=== PATIENT | female | born 1955 | race Caucasian/White ===

== ENCOUNTER → 2025-01-30 12:38 | Outpatient (CLI) | payer MEDICARE, SELFPAY ==
--- NOTE | 2025-01-30 12:57 | EKG_ITS ---
[facility] [address] [id number] [address] [place] [address] Test Date: 2025-01-30 Pat Name: Alena Hunt Department: Room: Gender: Female [employer]: : 1955 Requested By: Order Number: [id number] Reading MD: Mark Thompson Measurements Intervals [place] Rate: 73 P: 47 W[place]: 160 QRS: 80 QRSD: 80 T: 59 QT: 382 QTc: 420 Interpretive Statements Normal sinus rhythm with sinus arrhythmia Electronically Signed On 01-30-2025 17:06:42 PDT by Mark Thompson
== END ==
PROVIDERS: PCP Internal Medicine Geriatric Medicine; Referring Provider Internal Medicine Geriatric Medicine; Visit Provider Internal Medicine Geriatric Medicine
DX: Z01.818 Encounter for other preprocedural examination (principal)
CPT/HCPCS: 93005